=== PATIENT | female | born 1975 | race Caucasian/White ===

== ENCOUNTER → 2022-03-18 | Outpatient (CLI) | payer OTHER ==
[~2022-03-18] MED LIST: GABAPENTIN400 MG PO; KEPPRA500 MG PO; NORCO 5-325 TA1 EACH PO; SUBOXONE 8 MG-1 EACH SL
== END ==
LOC: HEART CORB 03-11 10:30
DX: I50.9 Heart failure, unspecified (principal); R60.0 Localized edema; R06.02 Shortness of breath; I27.20 Pulmonary hypertension, unspecified; I08.3 Combined rheumatic disorders of mitral, aortic and tricuspid valves
CPT/HCPCS: 93306